=== PATIENT | male | born 1960 | race Caucasian/White ===

== ENCOUNTER 2017-10-06 11:33 | Emergency (ER) | payer OTHER ==
[~2017-10-06] VITALS: Ht 167.6 cm; Wt 65.3 kg
[~2017-10-06 11:33] MED LIST: ALBU0.099 IH
[2017-10-06 11:41] VITALS: BP 101/66
[2017-10-06] MEDS ORDERED: LEVOFLOXACIN 250 MG TAB PO ONE (11:55)
[2017-10-06] MEDS ORDERED: IPRATROPIUM 0.02% 0.5 MG/2.5 ML NEBU INH ONE (11:55)
[2017-10-06] MEDS ORDERED: cefTRIAXone 1,000 MG in LIDOCAINE 1% ***ER ONLY *** 2.1 ML IM ONE (11:55)
[2017-10-06] MEDS ORDERED: ALBUTEROL 0.083% 2.5 MG/3 ML NEBU INH ONE (11:55)
[2017-10-06] MEDS ORDERED: DEXAMETHASONE 10 MG/ML VIAL IM ONE (11:55)
--- NOTE | 2017-10-06 12:02 | NUR ---
57 yo m bib self with c/o sob x 3 days. Patient denies any chest pain, cough, or fever. Denies n/v/d. Clear speech with full sentences. RR are even and unlabored. Lungs bilaterally clear upper lobes with bilateral diminish in bases. Pt just requesting a breathing treatment. aaox4. gcs 15. cms intact. er md fernandez notified. pt needs met. safety precautions in place. will continue to monitor.
[2017-10-06] MEDS ORDERED: cefTRIAXone 1,000 MG VIAL ONE (12:08)
--- NOTE | 2017-10-06 12:08 | NUR ---
RT at bedside at this time initiating breathing treatment.
--- NOTE | 2017-10-06 12:10 | NUR ---
XRAY at bedside at this time.
[2017-10-06] MEDS ORDERED: LIDOCAINE MPF 1% - **ER/OR** 5 ML ONE (12:11)
--- NOTE | 2017-10-06 12:15 | NUR ---
Medications will be administered to pt following completion of breathing treatment.
[2017-10-06 13:06] VITALS: BP 115/69
--- NOTE | 2017-10-06 13:06 | NUR ---
Patient discharged with v/s stable. Written and verbal after care instructions given and explained. Patient alert, oriented and verbalized understanding of instructions. Ambulatory with steady gait. All questions addressed prior to discharge. ID band removed. Patient advised to follow up with PMD. Rx of Prednisone, Promethazine, Albuterol, and Azithromycin given. Patient educated on indication of medication including possible reaction and side effects. Opportunity to ask questions provided and answered.
== END 2017-10-06 13:06 | disposition home or self-care (01) ==
LOC: MED 11:33
DX: J45.901 Unspecified asthma with (acute) exacerbation (principal); Z85.46 Personal history of malignant neoplasm of prostate; Z79.899 Other long term (current) drug therapy
CPT/HCPCS: 36600; 71045; 82803; 94640; 96372; 99284; J0696; J1100; J1956; J2001; J7613; J7644; Q0092

== ENCOUNTER 2017-12-31 19:11 | Emergency (ER) | payer OTHER ==
[~2017-12-31] VITALS: Ht 167.6 cm; Wt 63.5 kg
[2017-12-31 19:28] VITALS: BP 119/66
--- NOTE | 2017-12-31 19:28 | NUR ---
TO BED # 5 AMBULATORY, REPORT GIVEN TO LUCHO BOYKIN
--- NOTE | 2017-12-31 19:28 | NUR ---
PT PRESENTS TO ED WITH SOB POST ASHTMA EXACERBATION. PT STATES HX OF ASHTMA WITHOUT ASTHMA MEDS WORKING AT THIS TIME. PT 02SAT IS 95% AT RA. BREATHING EVEN AND REGULAR WITH EXPIRATORY WHEEZING. VSS. ER MD AWARE. POSITIONED IN BED WITH HOB ELEVATED. CONTINUE TO MONITOR.
[2017-12-31] MEDS ORDERED: ALBUTEROL SULFATE/IPRATROPIU 3 ML SOL IH ONE (20:00)
[2017-12-31] MEDS ORDERED: methylPREDNISolone SS 125 MG in WATER STERILE 2 ML IM ONE (20:00)
[2017-12-31 21:05] VITALS: BP 113/67
--- NOTE | 2017-12-31 21:05 | NUR ---
Patient discharged with v/s stable. Written and verbal after care instructions given and explained. Patient alert, oriented and verbalized understanding of instructions. Ambulatory with steady gait. All questions addressed prior to discharge. ID band removed. Patient advised to follow up with PMD. Rx of Ventolin inhaler and Prednisone given. Patient educated on indication of medication including possible reaction and side effects. Opportunity to ask questions provided and answered.
== END 2017-12-31 21:05 | disposition home or self-care (01) ==
LOC: MED 19:11
DX: J45.901 Unspecified asthma with (acute) exacerbation (principal); J44.9 Chronic obstructive pulmonary disease, unspecified; Z79.899 Other long term (current) drug therapy; Z85.46 Personal history of malignant neoplasm of prostate
CPT/HCPCS: 94640; 96372; 99283; J2930; J7620

== ENCOUNTER 2018-03-02 16:05 | Emergency (ER) | payer OTHER ==
[~2018-03-02] VITALS: Ht 170.2 cm; Wt 65.8 kg
--- NOTE | 2018-03-02 16:10 | NUR ---
PT AMBULATES TO BED 11
[2018-03-02 16:15] VITALS: BP 123/70
--- NOTE | 2018-03-02 16:19 | NUR ---
PATIENT PRESENTS TO ED WITH ASTHMA EXACERBATION WITH AUDIBLE WHEEZING . PT STATES NO IMPROVEMENT WITH ALBUTEROL USE AT HOME. DENIES N/V/D; SKIN IS PINK/WARM/DRY; AAOX4 WITH EVEN AND STEADY GAIT; PT DENIES ANY FEVER, CP, AT THIS TIME; PATIENT STATES PAIN OF 0/10 AT THIS TIME; VSS; PATIENT POSITIONED FOR COMFORT; HOB ELEVATED; BEDRAILS UP X2; BED DOWN. ER MD MADE AWARE OF PT STATUS.
[2018-03-02] MEDS ORDERED: ALBUTEROL SULFATE/IPRATROPIU 3 ML SOL IH ONE (16:20)
[2018-03-02] MEDS ORDERED: predniSONE 20 MG TAB PO ONE (16:20)
[2018-03-02] MEDS ORDERED: ALBUTEROL 0.083% 2.5 MG/3 ML NEBU INH ONE (16:20)
--- NOTE | 2018-03-02 16:20 | NUR ---
CALLED RT FOR TREATMENT
[2018-03-02 17:01] VITALS: BP 120/59
== END 2018-03-02 17:01 | disposition home or self-care (01) ==
LOC: MED 16:05
DX: J45.901 Unspecified asthma with (acute) exacerbation (principal); J44.9 Chronic obstructive pulmonary disease, unspecified; Z79.899 Other long term (current) drug therapy; Z85.46 Personal history of malignant neoplasm of prostate
CPT/HCPCS: 94640; 99283; J7512; J7613; J7620

== ENCOUNTER 2018-04-02 04:25 | Emergency (ER) | payer OTHER ==
[~2018-04-02] VITALS: Ht 167.6 cm; Wt 66.8 kg
--- NOTE | 2018-04-02 04:35 | NUR ---
PT BIB SELF C/O SOB X 1 MTH, PT DENIES ANY COUGH OR CP. PT DENIES N/V/D; SKIN IS INTACT, PINK/WARM/DRY; AAOX4, PERRL, WITH EVEN AND STEADY GAIT; LUNGS BL DIMINISHED, BREATHING MILD LABORED NOTED; HR EVEN AND REGULAR, BL PERIPHERAL PULSES PRESENT; BS ACTIVE X4, NO TENDERNESS TO PALPATION. PT DENIES ANY FEVER, CP OR COUGH AT THIS TIME; PT STATES 0/10 PAIN AT THIS TIME; VSS; PATIENT POSITIONED FOR COMFORT; HOB ELEVATED; BEDRAILS UP X2; BED DOWN.
[2018-04-02 04:36] VITALS: BP 100/71
[2018-04-02] MEDS ORDERED: ALBUTEROL SULFATE/IPRATROPIU 3 ML SOL IH ONE (04:50)
[2018-04-02] MEDS ORDERED: predniSONE 20 MG TAB PO ONE (04:50)
[2018-04-02] MEDS ORDERED: ALBUTEROL 0.083% 2.5 MG/3 ML NEBU INH ONE (04:50)
--- NOTE | 2018-04-02 05:02 | NUR ---
RT AT BEDSIDE, PO MEDS GIVEN-NADR AT THIS TIME
[2018-04-02 05:42] VITALS: BP 110/72
--- NOTE | 2018-04-02 05:43 | NUR ---
Patient discharged with v/s stable. Written and verbal after care instructions given and explained. Patient alert, oriented and verbalized understanding of instructions. Ambulatory with steady gait. All questions addressed prior to discharge. ID band removed. Patient advised to follow up with PMD. Rx of PREDNISONE 20MG given. Patient educated on indication of medication including possible reaction and side effects. Opportunity to ask questions provided and answered.
== END 2018-04-02 05:42 | disposition home or self-care (01) ==
LOC: MED 04:25
DX: J45.901 Unspecified asthma with (acute) exacerbation (principal); J44.9 Chronic obstructive pulmonary disease, unspecified; Z85.46 Personal history of malignant neoplasm of prostate; Z79.899 Other long term (current) drug therapy
CPT/HCPCS: 81002; 94640; 99283; J7512; J7613; J7620

== ENCOUNTER 2018-04-25 06:25 | Emergency (ER) | payer OTHER ==
[~2018-04-25] VITALS: Ht 165.1 cm; Wt 63.5 kg
[2018-04-25 06:30] VITALS: BP 122/69
--- NOTE | 2018-04-25 06:30 | NUR ---
PT TAKEN TO BED 4 Addendum: 04/25/18 at 0638 by LIONEL PT TAKEN TO BED 2
--- NOTE | 2018-04-25 06:30 | NUR ---
PT PRESENTS TO ED WITH SOB AND DYSPNEA X3 HRS. PT STATES HX ASTHMA. USED INHALER AT HOME WITHOUT RELIEF. NO DISTRESS. BILAT UPPER LOBE EXPIRATORY WHEEZING. NON-PRODUCTIVE COUGH. O2SAT 97% AT RA. VSS. POSITIONED IN BED FOR COMFORT WITH HOB ELVATED. ER MD AWARE. BED RAILS UP. CONTINUE TO MONITOR.
[2018-04-25] MEDS ORDERED: ALBUTEROL SULFATE/IPRATROPIU 3 ML SOL IH ONE (06:40)
--- NOTE | 2018-04-25 06:42 | NUR ---
Dr. Holly evaluating patient at bedside.
--- NOTE | 2018-04-25 06:45 | NUR ---
Respiratory Therapist at bedside for respiratory intervention.
[2018-04-25] MEDS ORDERED: NACL 0.9% 1,000 ML IV ONE (06:50)
[2018-04-25] MEDS ORDERED: MAG SULF 2000 MG/WATER PREMIX 50 ML IV ONE (06:50)
[2018-04-25] MEDS ORDERED: methylPREDNISolone SS 125 MG/2 ML VIAL IVP ONE (06:50)
--- NOTE | 2018-04-25 07:15 | NUR ---
[facility] PATIENT CARE AT THIS TIME, REPORT RECEIVED FROM ASHUTOSH YEPEZ
--- NOTE | 2018-04-25 08:19 | NUR ---
PT. RESTING COMFORTABLY IN BED, RR EVEN AND UNLABORED. VSS. HOB ELEVATED. IV PATENT. WILL CONTINUE TO MONITOR.
[2018-04-25 08:51] VITALS: BP 121/76
--- NOTE | 2018-04-25 08:51 | NUR ---
Patient discharged with v/s stable. Written and verbal after care instructions given and explained. Patient verbalized understanding. Ambulatory with steady gait. All questions addressed prior to discharge. Advised to follow up with PMD.
== END 2018-04-25 08:51 | disposition home or self-care (01) ==
LOC: MED 06:25
DX: J45.901 Unspecified asthma with (acute) exacerbation (principal); J44.9 Chronic obstructive pulmonary disease, unspecified; Z85.46 Personal history of malignant neoplasm of prostate; Z79.899 Other long term (current) drug therapy
CPT/HCPCS: 94640; 96365; 96366; 96375; 99283; J2930; J3475; J7030; J7620

== ENCOUNTER 2018-05-27 07:00 | Emergency (ER) | payer OTHER ==
[~2018-05-27] VITALS: Ht 167.6 cm; Wt 63.5 kg
[2018-05-27 07:11] VITALS: BP 116/60
--- NOTE | 2018-05-27 07:11 | NUR ---
TO BED # 4 AMBULATORY, REPORT GIVEN TO LADARIUS BOYKIN
--- NOTE | 2018-05-27 07:14 | NUR ---
RESP AT BEDSIDE
--- NOTE | 2018-05-27 07:15 | NUR ---
58Y/M BIB SELF WITH C/O SOB. PT STATES HE HAD DIFF OF BREATHING STARTED AT 0500HOUR. PT IS SAT 95% AT THIS TIME, SITIING UP IN BED, WILL CONT TO MONITOR, LUNG SOUNDS TIGHTNES AND WHEEZING, PT ALSO STATES HE HAS RIGHT RIB PAIN, 8/10, BED DOWN, LOW , LOCKED, BEDRAIL UP X 1, ER MD AWARE AND NOTIFIED OF PT STATUS. PMH: ASTHMA RX: ALBUTEROL
--- NOTE | 2018-05-27 07:15 | NUR ---
LAB AT BEDSIDE
[2018-05-27] MEDS ORDERED: ALBUTEROL 0.083% 2.5 MG/3 ML NEBU INH ONE (07:25)
[2018-05-27] MEDS ORDERED: MAG SULF 2000 MG/WATER PREMIX 50 ML IV ONE (07:25)
[2018-05-27] MEDS ORDERED: AZITHROMYCIN 500 MG in DEXTROSE 5% 250 ML IV ONE (07:25)
[2018-05-27] MEDS ORDERED: cefTRIAXone 1,000 MG in DEXT 5% MINI-BAG PLUS 50 ML IV ONE (07:25)
[2018-05-27] MEDS ORDERED: methylPREDNISolone SS 125 MG/2 ML VIAL IVP ONE (07:25)
[2018-05-27] MEDS ORDERED: IPRATROPIUM 0.02% 0.5 MG/2.5 ML NEBU INH ONE (07:25)
[2018-05-27] MEDS ORDERED: cefTRIAXone 1,000 MG VIAL ONE (07:42)
[2018-05-27] MEDS ORDERED: AZITHROMYCIN 500 MG INJ VIAL IV ONE (07:42)
[2018-05-27 08:02] LABS: BASOPHILS % (AUTO) 0.1 % (0.0-2.0); EOSINOPHILS % (AUTO) 0.1 % (0.0-4.0); HEMATOCRIT 43.5 % (36-52); HEMOGLOBIN 13.8 g/dL (12.0-18.0); LYMPHOCYTES # (AUTO) 0.7 K/uL (2.0-11.5); LYMPHOCYTES % (AUTO) 11.2 % (20.5-51.1); MEAN CORPUSCULAR HEMOGLOBIN 28 pg (27-31); MEAN CORPUSCULAR HGB CONC 32 g/dL (33-37); MEAN CORPUSCULAR VOLUME 87.4 fL (80-94); MONOCYTES # (AUTO) 0.2 K/uL (0.8-1.0); MONOCYTES % (AUTO) 3.7 % (1.7-9.3); NEUTROPHILS # (AUTO) 5.3 K/uL (1.8-7.7); NEUTROPHILS % (AUTO) 84.9 % (42.2-75.2); PLATELET COUNT (AUTO) 296 K/uL (140-450); RED BLOOD CELL COUNT(AUTO) 4.97 MIL/uL (4.20-6.10); RED CELL DISTRIBUTION WIDTH 12.8 % (11.6-13.7); WHITE BLOOD COUNT (AUTO) 6.2 K/uL (4.8-10.8)
--- NOTE | 2018-05-27 08:09 | NUR ---
EKG BEING DONE AT THIS TIME
--- NOTE | 2018-05-27 08:10 | NUR ---
RAD AT BEDSIDE
[2018-05-27 08:22] LABS: ANION GAP 13.6 (8-16); CARBON DIOXIDE 27.2 mmol/L (21-32); POTASSIUM 3.8 mmol/L (3.5-5.1)
[2018-05-27 08:28] LABS: ALBUMIN 3.7 g/dL (3.4-5.0); TOTAL BILIRUBIN 0.5 mg/dL (0.0-1.0)
[2018-05-27 08:34] LABS: D-DIMER < 100 ng/ml (0-400)
[2018-05-27 09:40] LABS: APPEARANCE,URINE CLEAR (CLEAR); BILIRUBIN,URINE NEGATIVE (NEGATIVE); BLOOD, URINE NEGATIVE (NEGATIVE); COLOR,URINE YELLOW (YELLOW); LEUKOCYTE ESTERASE ,URINE NEGATIVE (NEGATIVE); NITRITE, URINE NEGATIVE (NEGATIVE); UGLUCOSE NEGATIVE (NEGATIVE)
--- NOTE | 2018-05-27 10:00 | NUR ---
Patient appears to be resting comfortably in bed. Respirations even and unlabored.
[2018-05-27 11:28] VITALS: BP 110/58
--- NOTE | 2018-05-27 11:28 | NUR ---
Patient discharged with v/s stable. Written and verbal after care instructions given and explained. Patient alert, oriented and verbalized understanding of instructions. Ambulatory with steady gait. All questions addressed prior to discharge. ID band removed. Patient advised to follow up with PMD. Rx of PROMETHAZINE, ALBUTEROL AND PREDNISONE given. Patient educated on indication of medication including possible reaction and side effects. Opportunity to ask questions provided and answered.
== END 2018-05-27 11:28 | disposition home or self-care (01) ==
LOC: MED 07:00
DX: J45.901 Unspecified asthma with (acute) exacerbation (principal); R07.1 Chest pain on breathing; J44.9 Chronic obstructive pulmonary disease, unspecified; Z85.46 Personal history of malignant neoplasm of prostate; Z79.899 Other long term (current) drug therapy
CPT/HCPCS: 36415; 36600; 71045; 80053; 81003; 82803; 83880; 84484; 85025; 85379; 85610; 85730; 87040; 93005; 94640; 96365; 96366; 96367; 96375; 99285; J0456; J0696; J2930; J3475; J7060; J7613; J7644; Q0092; 96368

== ENCOUNTER 2018-07-20 07:44 | Emergency (ER) | payer OTHER ==
[~2018-07-20] VITALS: Ht 167.6 cm; Wt 63.5 kg
[2018-07-20 07:48] VITALS: BP 121/68
--- NOTE | 2018-07-20 07:52 | NUR ---
PT AMBULATES TO BED 11
--- NOTE | 2018-07-20 07:54 | NUR ---
Patient being evaluated by physician at bedside.
--- NOTE | 2018-07-20 07:55 | NUR ---
C/O SOB STARTING THIS MORNING. PER PT, HE USED HIS INHALER 2 TIMES BEFORE COMING IN. WHEEZES HEARD THROUGHOUT UPON AUSCULTATION, NO DISTRESS OR ACCESSORY MUSCLE USE NOTED, O2 SAT 100% ON RA. DENIES N/V/D, FEVER; SKIN IS PINK/WARM/DRY; AAOX4 WITH EVEN AND STEADY GAIT; HR EVEN AND REGULAR; PATIENT STATES PAIN OF 0/10 AT THIS TIME; VSS; PATIENT POSITIONED FOR COMFORT; HOB ELEVATED; BEDRAILS UP X1; BED DOWN. ER MD MADE AWARE OF PT STATUS.
--- NOTE | 2018-07-20 07:55 | NUR ---
CALLED RT FOR HHN ORDER REQUESTED BY DR FERNANDEZ
[2018-07-20] MEDS ORDERED: ALBUTEROL SULFATE/IPRATROPIU 3 ML SOL IH ONE (08:00)
[2018-07-20] MEDS ORDERED: predniSONE 20 MG TAB PO ONE (08:00)
[2018-07-20 08:35] VITALS: BP 121/68
--- NOTE | 2018-07-20 08:42 | NUR ---
Patient discharged with v/s stable. Written and verbal after care instructions given and explained. Patient alert, oriented and verbalized understanding of instructions. Ambulatory with steady gait. All questions addressed prior to discharge. ID band removed. Patient advised to follow up with PMD. Rx of PREDNISONE AND ALBUTEROL INHALER given. Patient educated on indication of medication including possible reaction and side effects. Opportunity to ask questions provided and answered.
== END 2018-07-20 08:42 | disposition home or self-care (01) ==
LOC: MED 07:44
DX: J45.901 Unspecified asthma with (acute) exacerbation (principal); Z85.46 Personal history of malignant neoplasm of prostate; Z79.899 Other long term (current) drug therapy; Z98.890 Other specified postprocedural states
CPT/HCPCS: 71045; 94640; 99283; J7512; J7620; Q0092

== ENCOUNTER 2018-11-03 04:39 | Emergency (ER) | payer OTHER ==
[~2018-11-03] VITALS: Ht 167.6 cm; Wt 63.5 kg
[2018-11-03 04:43] VITALS: BP 116/59
--- NOTE | 2018-11-03 04:43 | NUR ---
TO BED # 08 AMBULATORY
--- NOTE | 2018-11-03 04:47 | NUR ---
58/M PRESENTS SELF TO ED, C/O SOB/ASTHMA EXACERBATION X2 HRS. DENIES FEVER/CHILLS, PAIN/CP OR COUGH. AOX4, SKIN NORMAL WARM AND DRY, SPO2 97% ON RA, RR 18 EVEN AND SLIGHTLY LABORED. LUNG SOUNDS BL UPPER LOBES WHEEZING. HX ASTHMA, PROSTATE CA RX ALBUTEROL INH WITHOUT RELIEF.
[2018-11-03] MEDS ORDERED: ALBUTEROL SULFATE/IPRATROPIU 3 ML SOL IH ONE ×2 (04:50→05:25)
--- NOTE | 2018-11-03 04:56 | NUR ---
Respiratory Therapist at bedside for respiratory intervention.
--- NOTE | 2018-11-03 04:57 | NUR ---
Dr. Holly examining patient.
[2018-11-03] MEDS ORDERED: methylPREDNISolone SS 125 MG/2 ML VIAL IM ONE (05:05)
--- NOTE | 2018-11-03 05:34 | NUR ---
RT AT BEDSIDE FOR BREATHING TX
[2018-11-03 05:48] VITALS: BP 131/71
== END 2018-11-03 05:48 | disposition home or self-care (01) ==
LOC: MED 04:39
DX: J45.901 Unspecified asthma with (acute) exacerbation (principal); R11.2 Nausea with vomiting, unspecified; Z79.899 Other long term (current) drug therapy; Z85.46 Personal history of malignant neoplasm of prostate
CPT/HCPCS: 94640; 96372; 99284; J2930; J7620

== ENCOUNTER 2018-11-27 10:58 | Emergency (ER) | payer OTHER ==
[~2018-11-27] VITALS: Ht 167.6 cm; Wt 63.5 kg
--- NOTE | 2018-11-27 11:04 | NUR ---
Patient ambulated to bed 6. RN evaluating patient at bedside.
[2018-11-27 11:09] VITALS: BP 107/61
--- NOTE | 2018-11-27 11:19 | NUR ---
Dr. Holly evaluating patient at bedside.
--- NOTE | 2018-11-27 11:19 | NUR ---
PT C/O SOB SINCE THIS MORNING. INHALOR OF ALBUTEROL WAS USED WITHOUT RELIEF. DENIES N/V/D; SKIN IS PINK/WARM/DRY WITH RASH ON BOTH ARMS. PT STATES HE HAS THE CHRONIC RASH FOR A LONG TIME; AAOX4 WITH EVEN AND STEADY GAIT; PT DENIES ANY FEVER, CP, OR COUGH AT THIS TIME; PATIENT STATES PAIN OF 0/10 AT THIS TIME; VSS; PATIENT POSITIONED FOR COMFORT; HOB ELEVATED; BEDRAILS UP X1; BED DOWN. ER MD MADE AWARE OF PT STATUS.
[2018-11-27] MEDS ORDERED: ALBUTEROL SULFATE/IPRATROPIU 3 ML SOL IH ONE (11:20)
--- NOTE | 2018-11-27 11:31 | NUR ---
HHN THERAPY AND RESPIRATORY DRUG GIVEN ORDERED ENCOURAGED PATIENT WITH ACKNOWLEDGEMENT FOR INTERMITTENT DEEP BREATHING DURING THERAPY
--- NOTE | 2018-11-27 11:32 | NUR ---
Breathing treatment administered at bedside by respiratory therapist.
--- NOTE | 2018-11-27 11:42 | NUR ---
Dr. Holly evaluating patient at bedside.
[2018-11-27 11:55] VITALS: BP 113/57
--- NOTE | 2018-11-27 11:55 | NUR ---
Patient discharged with v/s stable. Written and verbal after care instructions given and explained. Patient alert, oriented and verbalized understanding of instructions. Ambulatory with steady gait. All questions addressed prior to discharge. ID band removed. Patient advised to follow up with PMD. Rx of Hydrocortisone 2.5% Topical Ointment and Albuterol given. Patient educated on indication of medication including possible reaction and side effects. Opportunity to ask questions provided and answered.
== END 2018-11-27 11:53 | disposition home or self-care (01) ==
LOC: MED 10:58
DX: J45.901 Unspecified asthma with (acute) exacerbation (principal); J44.9 Chronic obstructive pulmonary disease, unspecified; Z90.79 Acquired absence of other genital organ(s); Z85.46 Personal history of malignant neoplasm of prostate; Z79.899 Other long term (current) drug therapy
CPT/HCPCS: 94640; 99283; J7620

== ENCOUNTER 2020-01-02 11:21 | Emergency (ER) | payer MEDICAID, OTHER ==
[~2020-01-02] VITALS: Ht 167.6 cm; Wt 63.5 kg
[2020-01-02 11:29] VITALS: BP 111/69
--- NOTE | 2020-01-02 11:43 | NUR ---
Pt c/o left lower rib pain radiating to left-sided mid back x 1 wk. 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 PT DENIES ANY FEVER, CP, SOB, OR COUGH AT THIS TIME; PATIENT STATES PAIN OF 8/10 AT THIS TIME; VSS; PATIENT POSITIONED FOR COMFORT; HOB ELEVATED; BEDRAILS UP X1; BED DOWN. ER MD MADE AWARE OF PT STATUS.
[2020-01-02] MEDS ORDERED: KETOROLAC 30 MG/ML VIAL IM ONE (11:45)
--- NOTE | 2020-01-02 12:42 | NUR ---
Pt taken to x-ray via w/c.
[2020-01-02 13:32] VITALS: BP 111/69
== END 2020-01-02 13:32 | disposition home or self-care (01) ==
LOC: MED 11:21
DX: S20.20XA Contusion of thorax, unspecified, initial encounter (principal); M54.9 Dorsalgia, unspecified; J45.909 Unspecified asthma, uncomplicated; Z79.899 Other long term (current) drug therapy; Z85.46 Personal history of malignant neoplasm of prostate; X58.XXXA Exposure to other specified factors, initial encounter; Y93.89 Activity, other specified; Y92.89 Other specified places as the place of occurrence of the external cause; Y99.8 Other external cause status
CPT/HCPCS: 71101; 96372; 99283; J1885

== ENCOUNTER 2020-05-18 09:28 | Emergency (ER) | payer MEDICAID ==
[~2020-05-18] VITALS: Ht 167.6 cm; Wt 69.9 kg
[2020-05-18 09:37] VITALS: BP 137/71
--- NOTE | 2020-05-18 09:37 | NUR ---
PT AMBULATED TO BED 4, STEADY GAIT.
--- NOTE | 2020-05-18 09:37 | NUR ---
Sandy amador in ED - 05/18/20 at 0957 by MMTHEM Patient ambulated to bed 3. RN evaluating patient at bedside.
[2020-05-18] MEDS ORDERED: predniSONE 20 MG TAB PO ONE (09:45)
[2020-05-18] MEDS ORDERED: ALBUTEROL 0.083% 2.5 MG/3 ML NEBU INH ONE (09:45)
[2020-05-18] MEDS ORDERED: ALBUTEROL SULFATE/IPRATROPIU 3 ML SOL IH ONE (09:45)
--- NOTE | 2020-05-18 09:46 | NUR ---
60 Y/M PRESENTS FOR SOB/ ASTHMA FLARE UP X1DAY , UNRELEIVED BY NEB TX. PT DENIES COUGH, CP, OR ANY KNOWN COVID EXPOSURE. PT HAS NO INCREASED WOB, LUNGS ARE CLEAR BILATERALLY TO BASES, DENIES PAIN, DENIES N/V/D, DENIES DIZZINESS. NKDA RX- ALBUTEROL HX- ASTHMA, PROSTATE CA
--- NOTE | 2020-05-18 10:27 | NUR ---
RT at pt bedside.
--- NOTE | 2020-05-18 10:50 | NUR ---
HHN tx completed, patient states decreased WOB, speaking full sentences, SaO2 96% on room air.
[2020-05-18 11:23] VITALS: BP 117/53
== END 2020-05-18 11:24 | disposition home or self-care (01) ==
LOC: MED 09:28
DX: J45.909 Unspecified asthma, uncomplicated (principal); Z79.899 Other long term (current) drug therapy; Z98.890 Other specified postprocedural states; Z85.46 Personal history of malignant neoplasm of prostate
CPT/HCPCS: 81002; 94640; 99283; J7512; J7613

== ENCOUNTER 2021-03-09 21:37 | Emergency (ER) | payer MEDICAID ==
[~2021-03-09] VITALS: Ht 165.1 cm; Wt 70.8 kg
[2021-03-09 21:53] VITALS: BP 178/78
[2021-03-09] MEDS ORDERED: predniSONE 20 MG TAB PO ONE (22:00)
[2021-03-09] MEDS ORDERED: ALBUTEROL SULFATE/IPRATROPIU 3 ML SOL IH ONE ×2 (22:00→22:30)
--- NOTE | 2021-03-09 22:14 | NUR ---
Dr. Vyas examining patient.
--- NOTE | 2021-03-09 22:15 | NUR ---
Respiratory Therapist at bedside for respiratory intervention.
[2021-03-09] MEDS ORDERED: ALBU0.0912 IH (23:12)
[2021-03-09] MEDS ORDERED: PRED20TA5 PO (23:12)
[2021-03-09 23:15] VITALS: BP 128/72
--- NOTE | 2021-03-09 23:19 | NUR ---
PATIENT DC HOME FEELING WELL VITALS SIGNS IN NORMAL LIMITS NOT COMPLAINING OF PAIN ALL DC INSTRUTION GAVE AND EXPLAINED WE RECOMEND TO COMING BACK TO ED IF THE CONDITION GET WORSE OR DOESNT IMPROVING //Barney BOYKIN
== END 2021-03-09 23:19 | disposition home or self-care (01) ==
LOC: MED 21:37
DX: J45.901 Unspecified asthma with (acute) exacerbation (principal); Z79.899 Other long term (current) drug therapy
CPT/HCPCS: 94640; 99284; J7512

== ENCOUNTER 2021-03-16 06:00 | Emergency (ER) | payer MEDICAID ==
[~2021-03-16] VITALS: Ht 167.6 cm; Wt 60.8 kg
[~2021-03-16 06:00] MED LIST changes: +ALBU0.0912 IH; +PRED20TA5 PO
[2021-03-16 06:02] VITALS: BP 130/79
--- NOTE | 2021-03-16 06:07 | NUR ---
ambulatory to bed 9
--- NOTE | 2021-03-16 06:12 | NUR ---
Dr. Arguello examining patient.
--- NOTE | 2021-03-16 06:14 | NUR ---
patient c/o difficulty breathing started last night. used albuterol x2 with no relief. denies n/v/d. wheezing heard without auscultation. pmh: asthma nka
[2021-03-16] MEDS ORDERED: methylPREDNISolone SS 125 MG in WATER STERILE 2 ML IM ONE (06:20)
[2021-03-16] MEDS ORDERED: ALBUTEROL SULFATE/IPRATROPIU 3 ML SOL IH SCH (06:20)
[2021-03-16] MEDS ORDERED: ALBUTEROL SULFATE/IPRATROPIU 3 ML SOL IH ONE ×2 (06:32→08:25)
[2021-03-16] MEDS ORDERED: methylPREDNISolone SS 125 MG/2 ML VIAL IM ONE (06:45)
--- NOTE | 2021-03-16 06:45 | NUR ---
Sandy amador in [facility] - 03/16/21 at 0646 by LIONEL Respiratory Therapist at bedside for respiratory intervention.
--- NOTE | 2021-03-16 07:10 | NUR ---
Report and continuation of care received from ASHUTOSH Collins
--- NOTE | 2021-03-16 08:30 | NUR ---
RT at bedside for breathing treatment
[2021-03-16] MEDS ORDERED: PRED20TA5 PO (08:43)
[2021-03-16 09:00] VITALS: BP 132/83
== END 2021-03-16 09:03 | disposition home or self-care (01) ==
LOC: MED 06:00
DX: J45.901 Unspecified asthma with (acute) exacerbation (principal); Z79.899 Other long term (current) drug therapy
CPT/HCPCS: 94640; 96372; 99285; J2930

== ENCOUNTER 2021-05-04 10:40 | Emergency (ER) | payer MEDICAID ==
[~2021-05-04] VITALS: Ht 167.6 cm; Wt 63.5 kg
[2021-05-04 10:50] VITALS: BP 129/70
[2021-05-04] MEDS ORDERED: ALBU0.0912 IH (12:31)
[2021-05-04] MEDS ORDERED: BENZ100C6 PO (12:31)
[2021-05-04 12:39] VITALS: BP 129/70
--- NOTE | 2021-05-04 12:39 | NUR ---
Patient discharged with v/s stable. Written and verbal after care instructions given and explained. Patient alert, oriented and verbalized understanding of instructions. Ambulatory with steady gait. All questions addressed prior to discharge. ID band removed. Patient advised to follow up with PMD. Rx of PROVENTIL HFA MDI AND BENZONATATE given. Patient educated on indication of medication including possible reaction and side effects. Opportunity to ask questions provided and answered.
== END 2021-05-04 12:39 | disposition home or self-care (01) ==
LOC: MED 10:40
DX: R05.9 Cough, unspecified (principal); R68.83 Chills (without fever); J45.909 Unspecified asthma, uncomplicated; Z79.899 Other long term (current) drug therapy
CPT/HCPCS: 71045; 99283

== ENCOUNTER 2021-06-25 16:53 | Emergency (ER) | payer MEDICAID, OTHER ==
[~2021-06-25] VITALS: Ht 167.6 cm; Wt 67.1 kg
[~2021-06-25 16:53] MED LIST changes: +BENZ100C6 PO
[2021-06-25 17:00] VITALS: BP 134/54
--- NOTE | 2021-06-25 17:04 | NUR ---
PT AMBULATED TO BED 1
--- NOTE | 2021-06-25 17:09 | NUR ---
PA QUIJANO AT BEDSIDE EVALUATING PT
[2021-06-25] MEDS ORDERED: DICYCLOMINE HCL LIQUID 20 MG, ALUMINUM HYD/MAG/SIMETHICONE 30 ML, LIDOCAINE VISCOUS 2% ... PO ONE ×3 (17:15)
[2021-06-25] MEDS ORDERED: ONDANSETRON 4 MG ODT PO ONE (17:15)
[2021-06-25] MEDS ORDERED: LISI40TA12 PO (17:19)
--- NOTE | 2021-06-25 17:33 | NUR ---
61 Y/O MALE C/O VOMITING 3 TIMES S/P EATING A BAD BURRITO X6HRS AGO. PT HAD EPISODE OF DIARRHEA TODAY. PT DENIES FEVER/CHILLS/ PAIN AT THIS TIME. PMH: ASTHMA NKA
[2021-06-25] MEDS ORDERED: ALUMINUM HYD/MAG/SIMETHICONE 30 ML UDC ONE (17:44)
[2021-06-25] MEDS ORDERED: DICYCLOMINE HCL LIQUID 10 MG/5 ML UDC ONE (17:44)
[2021-06-25] MEDS ORDERED: ONDA-188 SL ×2 (17:58→18:41)
[2021-06-25] MEDS ORDERED: FAMO-90 PO ×2 (17:58→18:41)
[2021-06-25] MEDS ORDERED: IMO2 PO ×2 (17:58→18:41)
[2021-06-25 18:10] VITALS: BP 134/54
--- NOTE | 2021-06-25 18:11 | NUR ---
Patient discharged with v/s stable. Written and verbal after care instructions given and explained. Patient alert, oriented and verbalized understanding of instructions. Ambulatory with steady gait. All questions addressed prior to discharge. ID band removed. Patient advised to follow up with PMD. Rx of famotidine, ondansetron, loperamide (sent) given. Patient educated on indication of medication including possible reaction and side effects. Opportunity to ask questions provided and answered. work note given
== END 2021-06-25 18:10 | disposition home or self-care (01) ==
LOC: MED 16:53
DX: R11.10 Vomiting, unspecified (principal); R19.7 Diarrhea, unspecified; R03.0 Elevated blood-pressure reading, without diagnosis of hypertension; J45.909 Unspecified asthma, uncomplicated; Z90.49 Acquired absence of other specified parts of digestive tract; Z79.899 Other long term (current) drug therapy
CPT/HCPCS: 99283; Q0162

== ENCOUNTER 2021-07-10 15:32 | Emergency (ER) | payer OTHER ==
[~2021-07-10] VITALS: Ht 157.5 cm; Wt 65.8 kg
[~2021-07-10 15:32] MED LIST changes: -ALBU0.0912 IH; -ALBU0.099 IH; -BENZ100C6 PO; +FAMO-90 PO; +IMO2 PO; +ONDA-188 SL; -PRED20TA5 PO
[2021-07-10 15:36] VITALS: BP 125/74
[2021-07-10] MEDS ORDERED: HYDROcodone/APAP 5/325 MG 1 TAB TAB PO ONE (16:10)
--- NOTE | 2021-07-10 16:22 | NUR ---
61/M BIB SELF WITH C/O LEFT LOWER ABDOMINAL PAIN X1 WEEK, STATES "I THINK I HAVE A HERNIA BECAUSE I FEEL A BALL." DENIES N/V/D, FEVERS.
[2021-07-10 16:31] VITALS: BP 125/74
--- NOTE | 2021-07-10 16:31 | NUR ---
Patient discharged with v/s stable. Written and verbal after care instructions ABOUT HERNIA given and explained. Patient verbalized understanding. Ambulatory with steady gait. All questions addressed prior to discharge. Advised to follow up with PMD.
== END 2021-07-10 16:31 | disposition home or self-care (01) ==
LOC: MED 15:32
DX: K40.90 Unilateral inguinal hernia, without obstruction or gangrene, not specified as recurrent (principal); J45.909 Unspecified asthma, uncomplicated; Z85.46 Personal history of malignant neoplasm of prostate
CPT/HCPCS: 99284

== ENCOUNTER 2021-08-15 07:37 | Emergency (ER) | payer OTHER ==
[~2021-08-15] VITALS: Ht 167.6 cm; Wt 68.3 kg
[2021-08-15 07:41] VITALS: BP 141/81
--- NOTE | 2021-08-15 07:50 | NUR ---
PATIENT AMBULATED TO BED 6.
--- NOTE | 2021-08-15 07:50 | NUR ---
DR. FERNANDEZ AT BEDSIDE EVALUATING PATIENT.
--- NOTE | 2021-08-15 07:51 | NUR ---
Patient being evaluated by DR FERNANDEZ at bedside.
[2021-08-15] MEDS ORDERED: BACITRACIN OINT 500 UNITS/GM PKT TP ONE (07:55)
[2021-08-15] MEDS ORDERED: LIDOCAINE 2% 1000 MG/50 ML VIAL INJ ONE (07:55)
[2021-08-15] MEDS ORDERED: CEPH-588 PO (08:01)
[2021-08-15] MEDS ORDERED: BACI1PAC6 TP (08:01)
--- NOTE | 2021-08-15 08:18 | NUR ---
ASSISTANT HEALTH EDUCATOR AT PT BEDSIDE.
--- NOTE | 2021-08-15 08:23 | NUR ---
61 Y/O MALE BIB SIGNIFICANT OTHER WITH C/O RIGHT THUMB LACERATION. PATIENT WAS CUTTING HIS BELT AND MISSED WITH HIS BELT AND CUT HIS RIGHT THUMB. DENIES PAIN. NO BLEEDING NOTED AT THIS TIME. MEDICAL HISTORY: ASTHMA NKDA
--- NOTE | 2021-08-15 08:49 | NUR ---
Dr. Hebert at bedside performing procedure.
--- NOTE | 2021-08-15 09:26 | NUR ---
61 y/o male, c/o right hand, 1st digit after cutting finger on kitchen knife this morning. denies nausea, vomiting, diarrhea. skin is pink/warm/dry. a&o x4 with even and steady gait. lungs clear bl, heart rate even and regular. pt denies any fever, cp, sob, or cough at this time. pt states pain is 0/10 at this time. vss. patient positioned for comfort. hob elevated. bed down. ermd made aware of pt. pmh: asthma nka
--- NOTE | 2021-08-15 09:30 | NUR ---
Patient discharged with v/s stable. Written after care instructions given and. Patient alert, oriented and verbalized understanding of instructions. Ambulatory with steady gait. All questions addressed prior to discharge. ID band removed. Patient advised to follow up with PMD. Rx of KEFLEX AND BACITRACIN given. Opportunity to ask questions provided and answered.
--- NOTE | 2021-08-15 10:05 | NUR ---
The patient's care was reviewed and supervised by Veronica Ibrahim, RN, RN.
== END 2021-08-15 09:30 | disposition home or self-care (01) ==
LOC: MED 07:37
DX: S61.011A Laceration without foreign body of right thumb without damage to nail, initial encounter (principal); J45.909 Unspecified asthma, uncomplicated; Z98.890 Other specified postprocedural states; Z79.2 Long term (current) use of antibiotics; Z79.899 Other long term (current) drug therapy; W26.8XXA Contact with other sharp object(s), not elsewhere classified, initial encounter; Y93.89 Activity, other specified; Y92.89 Other specified places as the place of occurrence of the external cause; Y99.8 Other external cause status
CPT/HCPCS: 12002; 73140; 90471; 90715; 99283; J2001; Q0092

== ENCOUNTER 2021-08-22 19:11 | Emergency (ER) | payer OTHER ==
[~2021-08-22] VITALS: Ht 165.1 cm; Wt 70.8 kg
[~2021-08-22 19:11] MED LIST changes: +BACI1PAC6 TP; +CEPH-588 PO
[2021-08-22 19:32] VITALS: BP 136/62
[2021-08-22 20:26] VITALS: BP 136/62
== END 2021-08-22 20:26 | disposition home or self-care (01) ==
LOC: MED 19:11
DX: S61.011D Laceration without foreign body of right thumb without damage to nail, subsequent encounter (principal); Z48.02 Encounter for removal of sutures; J45.909 Unspecified asthma, uncomplicated; Z79.899 Other long term (current) drug therapy; Z79.2 Long term (current) use of antibiotics; Z98.890 Other specified postprocedural states; Z85.46 Personal history of malignant neoplasm of prostate; X58.XXXD Exposure to other specified factors, subsequent encounter
CPT/HCPCS: 99281

== ENCOUNTER 2022-05-17 12:45 | Emergency (ER) | payer OTHER ==
[~2022-05-17] VITALS: Ht 167.6 cm; Wt 69.4 kg
[~2022-05-17 12:45] MED LIST changes: +BACI-416 TP; -BACI1PAC6 TP
[2022-05-17 12:59] VITALS: BP 123/68
--- NOTE | 2022-05-17 13:02 | NUR ---
PT AMB TO BED 8.
--- NOTE | 2022-05-17 13:10 | NUR ---
EDWARD Koenig evaluating patient at bedside.
[2022-05-17] MEDS ORDERED: KETOROLAC 30 MG/ML VIAL IM ONE (13:15)
--- NOTE | 2022-05-17 13:15 | NUR ---
62 y/o male bib self with c/o right shoulder pain from s/p lifting a heavy box earlier today. Patient has no bruising or deformities to right shoulder. Patient is able to move bilateral arms without discomfort. Denies taking any pain medication. Medical History: Asthma NKDA
--- NOTE | 2022-05-17 13:28 | NUR ---
RAD AT BEDSIDE
--- NOTE | 2022-05-17 14:08 | NUR ---
SLING APPLIED TO R SHOULDER. + CMS
[2022-05-17] MEDS ORDERED: IBUP-2213 PO (14:10)
[2022-05-17 14:32] VITALS: BP 132/74
--- NOTE | 2022-05-17 14:32 | NUR ---
Patient discharged with v/s stable. Written and verbal after care instructions given. Patient alert, oriented and verbalized understanding of instructions. Ambulatory with steady gait. All questions addressed prior to discharge. ID band removed. Patient advised to follow up with PMD. Rx of Ibuprofen given. Opportunity to ask questions provided and answered.
--- NOTE | 2022-05-17 14:33 | NUR ---
The patient's care was reviewed and supervised by Dorothy Ruiz RN.
== END 2022-05-17 14:32 | disposition home or self-care (01) ==
LOC: MED 12:45
DX: S46.811A Strain of other muscles, fascia and tendons at shoulder and upper arm level, right arm, initial encounter (principal); J45.909 Unspecified asthma, uncomplicated; Z79.899 Other long term (current) drug therapy; X58.XXXA Exposure to other specified factors, initial encounter; Y93.89 Activity, other specified; Y92.89 Other specified places as the place of occurrence of the external cause; Y99.0 Civilian activity done for income or pay
CPT/HCPCS: 73030; 96372; 99283; J1885; Q0092

== ENCOUNTER 2023-02-10 11:13 | Emergency (ER) | payer OTHER ==
[~2023-02-10] VITALS: Ht 165.1 cm; Wt 68.0 kg
[~2023-02-10 11:13] MED LIST changes: -BACI-416 TP; +BACI-418 TP; +IBUP-2213 PO
[2023-02-10] MEDS ORDERED: predniSONE 20 MG TAB PO ONE (11:35)
[2023-02-10] MEDS ORDERED: ALBUTEROL 0.083% 2.5 MG/3 ML NEBU INH ONE (11:35)
[2023-02-10 11:43] VITALS: BP 125/75; PULSE 82; RESP 20; TEMP 97.8; O2SAT 99
[2023-02-10 12:31] VITALS: PULSE 69; RESP 16; O2SAT 98
[2023-02-10] MEDS ORDERED: ALBU90AE IH (12:58)
[2023-02-10] MEDS ORDERED: PRED20TA5 PO (12:58)
== END 2023-02-10 13:10 | disposition home or self-care (01) ==
LOC: MED 11:13
DX: J45.901 Unspecified asthma with (acute) exacerbation (principal); Z79.899 Other long term (current) drug therapy
CPT/HCPCS: 94640; 99283; J7512; J7613